=== PATIENT | male | born 1975 | race Caucasian/White ===

== ENCOUNTER 2024-08-27 08:27 | Outpatient (CLI) | payer OTHER, SELFPAY ==
--- NOTE | 2024-08-29 19:37 | WPDHOMESLEEP ---
Sleep Study - Home Unattended Date of Study: 08/27/24 Ordering Provider: Cathy Bills PA-C Interpreting Provider: Deedee Thomason MD Home Sleep Study Type: Watch PAT Height: 1.8 m Weight: 103.419 kg Body Mass Index: 31.8 Neck Circumference (inches): 18 [place]: 9 Reason for Sleep Study Loud snoring, choking at night, daytime sleepiness Sleep History Alfonzo Bills is a 49-year-old man who has loud snoring, choking and gasping during the night, difficulty sleep breathing when he sleeps on his back, and he awakens with morning headaches. He awakens with a sore throat and a dry mouth. He has nocturnal heartburn. He wakes twice at night to urinate. He has difficulty falling asleep and remaining asleep. When he wakes at night he has difficulty returning to sleep. He does not use any hypnotics or sedatives. He is anxious about his sleep problems. He does clench and grind his teeth at night. He is tired and fatigued during the day. His sleep is not refreshing. He has an urge to fall asleep during the day but the he does not have drowsy driving. He does not have any complaints of uncomfortable feelings in his legs or an urge to move his legs. He does wake up before his desired wake time. His normal bedtime is to a.m. falling asleep within 15 minutes spending 8 hours in bed but not all of it sleeping. He maintains a similar schedule on days off. His sleep is never restorative. Habits: Tobacco: None Caffeine: 1-2 cups daily Alcohol: 1 glass, 1-2 nights per week His insomnia severity index, IS I is 13, elevated. He has mild difficulty falling asleep, mild difficulty staying asleep, moderate difficulty waking up too early in the morning. He is very dissatisfied with the sleep schedule. His sleep pattern is somewhat interfering with his normal daily function. This is not at all nose told other people. He does have a considerable amount of worry regarding his sleep problems. His [place] Sleepiness Scale score is 9 which is borderline elevated. [facility] Social History Social History Smoking status: Never smoker Medications Home Medications ?Medication ?Instructions ?Recorded ?Confirmed ?Type finasteride 1 mg tablet 1 mg PO DAILY #30 tabs 09/19/24 Rx fluoxetine 20 mg capsule 20 mg PO DAILY #90 caps 07/06/24 Rx trazodone 50 mg tablet 50 mg PO QHS PRN insomnia #30 tabs 08/10/24 Rx Sleep Procedure The sleep study was completed using WatchPAT a technically adequate device with seven channels: peripheral arterial tone, actigraphy, body position, snore, respiratory movement, pulse oximetry, sleep staging, and heart rate. Prior to using the device, the patient received verbal and written instructions for its application and was provided with the help desk phone number for additional telephonic instruction with 24-hour availability of qualified personnel to answer questions. Sleep Architecture The total recording time is 6 hrs, 7 min. The total sleep time is 5 hrs, 3 min. Sleep latency is 20 minutes. REM latency is 52 minutes. The patient had 7 episodes of waking. Sleep architecture shows 18.4% deep sleep, 47.0% light sleep, and 34.5% stage REM. The patient spent 68.6% of total sleep time in the supine position. Sleep efficiency was 82%. Respiratory Analysis The overall AHI (pAHI 3%:) is 15.7. The central AHI is 0.0. The AHI was 10.4 in NREM and 26.0 in REM sleep. The AHI was 18.5 in Supine and 9.7 in Non-supine sleep. Percent of Dane Portillo respirations is 0.0. Oximetry Data The oxygen desaturation index (REYNA 4%:) is 3.2. The mean saturation is 95%, and the lowest saturation is 88%. Time spent with saturation < 88% is 0.1 minutes. Snoring Profile Snoring average intensity is 43 dB. The patient snored above 45 decibels for 56.3 minutes, 18.5% of sleep time. Cardiac Profile The average pulse rate is 53 beats per minutes. The lowest pulse rate is 38 bpm. The highest pulse rate is 86 bpm. Cardiac rhythm analysis in sleep does not detect atrial fibrillation. Assessment and Plan Assessment and Plan (1) Obstructive sleep apnea: Code(s): G47.33 - Obstructive sleep apnea (adult) (pediatric) Status: Acute Assessment and Plan: This home sleep test using WatchPat on 08/27/2024 shows an overall apnea-hypopnea index of 15.7 using 3% criteria which is consistent with moderate obstructive sleep apnea. He had no central apneas or Dane-Portillo respiration. His lowest saturation was 85%. He is a candidate for treatment with PAP therapy and may benefit from auto PAP. I recommend that this patient be prescribed Resmed AirSense 11 AutoPAP 5-15 cm H2O, CPAP mask/filters/tubing and humidifier chamber. This should be used with all episodes of sleep. Compliance should be reviewed within 31-90 days of starting therapy for usage greater than 4 hours per night greater than 70% of the nights. The patient should be asked about symptoms such as excessive daytime sleepiness, quality of sleep, decreased nocturia, increased mental functioning such as memory, mood, and concentration. If he does not respond well to auto PAP he may consider a CPAP titration in the sleep lab with a sleep aid available, if needed, to initiate and maintain sleep however his habitual bedtime is 2:00 a.m., later than usual for an in-lab study, but could be accommodated. Other treatment alternatives may include oral airway treatment which can be fitted by a Sleep Dentist. BMI is 31. Weight management is advised. Clinical data suggests that weight loss of 10% can reduce the severity of respiratory events and snoring and improve AHI by as much as 25%. Data The data obtained during this sleep study is adequate for interpretation. Certification This sleep study has been reviewed by a board certified sleep medicine physician.
[2024-08-29 19:52] VITALS: BMI 31.8
== END 2024-08-28 11:22 | disposition home or self-care (01) ==
LOC: ANHCSM 08:30
PROVIDERS: PCP Physician Assistant Medical; Visit Provider Physician Assistant Medical
DX: G47.30 Sleep apnea, unspecified (principal); R40.0 Somnolence; R06.83 Snoring; R53.83 Other fatigue; G47.33 Obstructive sleep apnea (adult) (pediatric)
CPT/HCPCS: 95800

== ENCOUNTER 2025-01-06 10:12 | Outpatient (CLI) | payer OTHER, SELFPAY ==
--- NOTE | ~2025-01-06 | MR_ITS ---
MRI of the right knee Clinical history: Pain Technique: Coronal proton density and proton density-weighted images, sagittal proton-density and T2 fat-sat images, and axial proton-density fat-saturated images were acquired. Findings: Anterior and posterior cruciate ligaments are intact. Medial collateral ligament and the la teral collateral ligament complex are intact. Popliteus tendon is intact. Suspected very subtle oblique tear of the posterior horn of the medial meniscus versus prominent intr asubstance degenerative signal. Lateral meniscus is intact. 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 There is patchy moderate chondral malacia the f emoral trochlea. There is chondral thinning in the medial joint line. Extensor mechanism is intact. No significant joint effusion or Gomez's cyst. Impression: Suspected subtle oblique tear of the posterior horn medial meniscus versus prominent intrasubstance d egenerative signal. Mild degenerative changes, as above. Reviewed, dictated and finalized at [facility]. Impression: Suspected subtle oblique tear of the posterior horn medial meniscus versus prom inent intrasubstance degenerative signal. Mild degenerative changes, as above.
== END 2025-01-06 10:13 | disposition home or self-care (01) ==
LOC: MICIMG 10:12
PROVIDERS: PCP Physician Assistant Medical; Visit Provider Physician Assistant Medical
DX: M17.11 Unilateral primary osteoarthritis, right knee (principal)
CPT/HCPCS: 73721

== ENCOUNTER 2025-05-18 14:51 | Outpatient (CLI) | payer OTHER, SELFPAY ==
[2025-05-18 15:27] LABS: Hematocrit 44.6 % (42.0-52.0); Hemoglobin 15.4 g/dL (14.0-18.0); Immature Granulocyte Percent A 0.2 % (0-0.5); Lymphocytes Absolute Auto 1.54 K/mm3 (0.9-3.2); Mean Corpuscular HGB Conc 34.5 g/dl (32-36); Mean Corpuscular Hemoglobin 30.8 pg (26-34); Mean Corpuscular Volume 89.2 fl (80-100); Nucleated Red Blood Cells Absolute Auto 0.000 K/mm3 (0.0-0.012); Nucleated Red Blood Cells Perc 0.0 % (0.0-0.2); Platelet Count Result 224 k/mm3 (150-375); Red Blood Count 5.00 M/mm3 (4.6-6.20); White Blood Count 5.3 K/mm3 (4.5-10.0)
[2025-05-18 15:47] LABS: Alanine Aminotransferase 29 U/L (6-50); Albumin Level 4.6 g/dL (3.5-5.1); Alkaline Phosphatase 62 U/L (38-126); Amylase 99 U/L (30-110); Anion Gap 9 mmol/L (4-12); Aspartate Amino Transferase 32 U/L (17-59); Bilirubin,Total 0.7 mg/dL (0.2-1.3); Blood Urea Nitrogen 22 mg/dL (9-20); Calcium 9.5 mg/dL (8.4-10.2); Carbon Dioxide 25 mmol/L (22-30); Chloride 102 mmol/L (98-107); Estimated Glomerular Filt Rate 50; Glucose 92 mg/dL (65-110); Lipase 197 U/L (23-300); Potassium 4.0 mmol/L (3.4-5.0); Sodium 136 mmol/L (137-145); Total Protein 7.7 g/dL (6.3-8.2)
[2025-05-18 16:23] LABS: Thyroid Stimulating Hormone 1.610 uIU/mL (0.465-4.680)
[2025-05-18 17:04] LABS: CRP < 0.5 mg/dL (<1.0)
[2025-05-18 17:35] LABS: Free T4 Free Thyroxine 1.02 ng/dL (0.78-2.19)
[2025-05-22 08:08] LABS: Deamidated Gliadin Abs, IgA 4 units (0-19); Deamidated Gliadin Abs, IgG 2 units (0-19)
== END 2025-05-18 14:52 | disposition home or self-care (01) ==
LOC: ANHLAB 14:52
PROVIDERS: PCP Physician Assistant Medical; Visit Provider Physician Assistant Medical
DX: R19.7 Diarrhea, unspecified (principal); R10.13 Epigastric pain
CPT/HCPCS: 36415; 80053; 82150; 82784; 83690; 84439; 84443; 85025; 85652; 86140; 86231; 86258